=== PATIENT | female | born 1990 | race Caucasian/White ===

== ENCOUNTER 2023-03-19 18:05 | Emergency (ER) | payer SELFPAY ==
[~2023-03-19] VITALS: Ht 149.9 cm; Wt 56.7 kg
[2023-03-19 18:17] VITALS: O2SAT 100
== END 2023-03-19 18:44 | disposition home or self-care (01) ==
LOC: ER 18:16
DX: M25.562 Pain in left knee (principal); E78.5 Hyperlipidemia, unspecified
CPT/HCPCS: 99283